=== PATIENT | male | born 1975 | race Caucasian/White ===

== ENCOUNTER 2021-01-28 15:18 | Emergency (ER) | payer OTHER ==
[2021-01-28] MEDS ORDERED: Bupivacaine 0.5% 10 ML SDV INJECT ONE (15:56)
[2021-01-28] MEDS ORDERED: Bacitracin Oint 1 GM U/D Packet TOP ONE (15:56)
[2021-01-28] MEDS ORDERED: Diphtheria,Pertussis(Acell),Tetanus Vaccine 0.5 ML Syringe IM ONE (15:56)
[2021-01-28] MEDS ORDERED: Povidone-Iodine 10% Soln 118.25 ML Bottle ONE (16:03)
--- NOTE | 2021-01-28 16:10 | EDM.PDOC ---
ED HPI GENERAL MEDICAL PROBLEM - General Chief Complaint: Laceration Stated Complaint: SMASHED RIGHT HAND Time Seen by Provider: 01/28/21 15:51 Source of Information: Reports: Patient History Limitations: Reports: No Limitations - History of Present Illness INITIAL COMMENTS - FREE TEXT/NARRATIVE: Raul is a 45 year old male whom presents to ER for evaluation of right hand injury. [facility] xray completed, shot of Dilaudid for pain and told 2 hour wait to be repaired. Raul left the [facility] facility due to wait. Raul was at work this afternoon when he got his finger caught between two garage doors around 12:15 this after noon resulting in right ring finger injury. Raul does not recall last tetanus shot and pain is still tolerable due to previous dilaudid injection. Right Finger-Ring Pain Score (Numeric/FACES): 4 - Related Data Allergies Allergy/AdvReac Type Severity Reaction Status Date / Time No Known Allergies Allergy Verified 01/28/21 15:41 Home Meds: Home Meds NK [No Known Home Meds] 01/28/21 [History] Past Medical History HEENT History: Reports: Hard of Hearing - Infectious Disease History Infectious Disease History: Reports: Chicken Pox - Past Surgical History Head Surgeries/Procedures: Reports: None HEENT Surgical History: Reports: Tonsillectomy Dermatological Surgical History: Reports: None Social & Family History - Tobacco Use Tobacco Use Status *Q: Current Every Day Tobacco User Years of Tobacco use: 15 Packs/Tins Daily: 0.5 - Caffeine Use Caffeine Use: Reports: Coffee, Soda - Recreational Drug Use Recreational Drug Use: No ED ROS GENERAL - Review of Systems Review Of Systems: Comprehensive ROS is negative, except as noted in HPI. ED EXAM, SKIN/RASH Exam: See Below Exam Limited By: No Limitations General Appearance: Alert, WD/WN, Mild Distress (hand injury/laceration) ED SKIN PROCEDURES - Laceration/Wound Repair Right Digit - 4th (Ring) Appearance: Superficial, Subcutaneous, Irregular (flap ), Mildly Contaminated Distal NVT: Neuro & Vascular Intact, Other (distal flexor suface and fat pad ) Local Anesthesia - Bupivicaine (Marcaine): 0.5% Plain Local Anesthetic Volume: 4cc Skin Prep: Chlorhexidine (Hibiciens), Saline, Other (Soaked with sterile saline 750cc and betadine 2 cc) Exploration/Debridement/Repair: Wound Explored, In a Bloodless Field, Explored to Base, Wound Margins Revised, Other (debulked fat tissue to allow for closure and improved vascular bed for healing) Closed with: Sutures Lac/Wound length In cm: 6.5 Suture Size: 5-0 # of Sutures: 13 Suture Type: Nylon Sterile Dressing Applied: Provider Tetanus Status Addressed: Yes Complications: Yes Complication Description: Discussed risk of non healing due to size of flap with cool color due to bridge of intact soft tissue distal tip. Course - Vital Signs Last Recorded V/S: Last Vital Signs Temp 36.7 C 01/28/21 15:41 Pulse 72 01/28/21 15:41 Resp 16 01/28/21 15:41 BP 138/85 01/28/21 15:41 Pulse Ox 97 01/28/21 15:41 Departure - Departure Time of Disposition: 17:05 Disposition: Home, Self-Care 01 Clinical Impression: Finger laceration with complication, Tetanus toxoid vaccination administered at current visit - Discharge Information Instructions: Laceration Care, Adult Referrals: Aurora Bay MD [Primary Care Provider] - Additional Instructions: 1. KEEP LACERATION DRY AND CLEAN X [address] for the next 12-24 hours. 2. AFTER 48 hours CLEANSE WOUND DAILY AND APPLY TOPICAL ANTIBIOTIC OINTMENT. 3. FOLLOW WOUND CARE INFORMATION GIVEN. 4. FOLLOW UP IN CLINIC IN 3-5 days for wound check and 7-10 DAYS FOR POSSIBLE SUTURE REMOVAL. 5. Tylenol or Ibuprofen for pain and swelling. 6. Return for repeat evaluation if increase, changes, new or worsen symptoms. Discharge Instructions Laceration (Cut) You were seen today for a laceration (cut). Your provider examined your laceration for any problems such a buried foreign body (like glass, a splinter, or gravel), or injury to blood vessels, tendons, and nerves. Your provider may have also rinsed and/or scrubbed your laceration to help prevent an infection. It may not be possible to find all problems with your laceration on the first visit; occasionally foreign bodies or a tendon injury can go undetected. Your laceration may have been closed in one of several ways: No closure: many wounds will heal just fine without closure. Stitches: regular stitches that require removal. Pepe: skin pepe are often used in the scalp/head. Wound adhesive (glue): skin glue can be used for certain lacerations and doesnt require removal. Wound strips (aka Butterfly bandages or steri-strips): these are bandages that help to close a wound. Absorbable stitches: dissolving stitches that go away on their own and usually dont require removal. A small percentage of wounds will develop an infection regardless of how well the wound is cared for. Antibiotics are generally not indicated to prevent an infection so are only given for a small number of high-risk wounds. Some lacerations are too high risk to close, and are left open to heal because closure can increase the likelihood that an infection will develop. Remember that all lacerations, no matter how expertly repaired, will cause scarring. We consider many factors, techniques, and materials, in our efforts to provide the best possible cosmetic outcome. Generally, every Emergency Department visit should have a follow-up clinic visit with either a primary or a specialty clinic/provider. Please follow-up as instructed by your emergency provider today. Return to the Emergency Department right away if: You have more redness, swelling, pain, drainage (pus), a bad smell, or red streaking from your laceration as these symptoms could indicate an infection. You have a fever of 100.4F or more. You have bleeding that you cannot stop at home. If your cut starts to bleed, hold pressure on the bleeding area with a clean cloth or put pressure over the bandage. If the bleeding does not stop after using constant pressure for 30 minutes, you should return to the Emergency Department for further treatment. An area past the laceration is cool, pale, or blue compared with the other side, or has a slower return of color when squeezed. Your dressing seems too tight or starts to get uncomfortable or painful. For children, signs of a problem might be irritability or restlessness. You have loss of normal function or use of an area, such as being unable to straighten or bend a finger normally. You have a numb area past the laceration. Return to the Emergency Department or see your regular provider if: The laceration starts to come open. You have something coming out of the cut or a feeling that there is something in the laceration. Your wound will not heal, or keeps breaking open. There can always be glass, wood, dirt or other things in any wound. They will not always show up, even on x-rays. If a wound does not heal, this may be why, and it is important to follow-up with your regular provider. Home Care: Take your dressing off in 12-24 hours, or as instructed by your provider, to check your laceration. Remove the dressing sooner if it seems too tight or painful, or if it is getting numb, tingly, or pale past the dressing. Gently wash your laceration 1-2 times daily with clean water and mild soap. It is okay to shower or run clean water over the laceration, but do not let the laceration soak in water (no swimming). If your laceration was closed with wound adhesive or strips: pat it dry and leave it open to the air. For all other repairs: after you wash your laceration, or at least 2 times a day, apply antibiotic ointment (such as Neosporin or Bacitracin) to the laceration, then cover it with a Band-Aid or gauze. Keep the laceration clean. Wear gloves or other protective clothing if you are around dirt. Follow-up for removal: If your wound was closed with pepe or regular stitches, they need to be removed according to the instructions and timeline specified by your provider today. If your wound was closed with absorbable (dissolving) sutures, they should fall out, dissolve, or not be visible in about one week. If they are still visible, then they should be removed according to the instructions and timeline specified by your provider today. Scars: To help minimize scarring: Wear sunscreen over the healed laceration when out in the sun. Massage the area regularly once healed. You may apply Vitamin E to the healed wound. Wait. Scars improve in appearance over months and years. If you were given a prescription for medicine here today, be sure toread all of the information (including the package insert) that comes with your prescription. This will include important information about the medicine, its side effects, and any warnings that you need to know about. The pharmacist who fills the prescription can provide more information and answer questions you may have about the medicine. If you have questions or concerns that the pharmacist cannot address, please call or return to the Emergency Department. Remember that you can always come back to the Emergency Department if you are not able to see your regular provider in the amount of time listed above, if you get any new symptoms, or if there is anything that worries you. TETANUS (LOCKJAW) IMMUNIZATION GENERAL INFORMATION: Tetanus is an acute infectious disease which produces painful tonic spasms of some voluntary muscles. Often the first noticeable sign is stiffness of the jaw (lockjaw). Tetanus shots are indicated for active immunization/protection of children over six years of age and adults. The basic immunization course consists of two doses/injections given at intervals of 4-6 weeks, and followed by a third dose/injection 6-12 months later. The third dose must be given to consider immunization/terminal manager protection completed. routine booster dose/injection should be given in ten year intervals throughout life to maintain immunity. GOAL:To prevent tetanus from occurring. TREATMENT/SPECIAL INSTRUCTIONS: 1. For clean minor wounds, a tetanus booster shot is necessary if ten years have elapsed since your last booster. For all other wounds, a booster shot is needed if it has been five or more years since your last booster. 2. A small area of redness and firmness at the site of the Injection (shot) is common, and may last for a few days. 3. If your arm feels stiff and sore, exercise it. You may also apply cold to the injection area for relief of minor discomfort. 4. It is important to keep a record of the date on which you received your Tetanus booster. This is a card for you to record the date of your booster. Cut it out and keep it in your billfold for reference. Sepsis Event Note (ED) - Evaluation Sepsis Screening Result: No Definite Risk - Focused Exam Vital Signs: Vital Signs Temp Pulse Resp BP Pulse Ox 01/28/21 15:41 36.7 C 72 16 138/85 97 01/28/21 15:38 36.7 C 72 16 138/85 97
[2021-01-28] MEDS ORDERED: Povidone-Iodine 10% Soln 118.25 ML Bottle TOP ONE (16:18)
== END 2021-01-28 17:23 | disposition home or self-care (01) ==
LOC: JP.ED 15:18
DX: S61.214A Laceration without foreign body of right ring finger without damage to nail, initial encounter (principal); Z72.0 Tobacco use; Z23 Encounter for immunization; W23.0XXA Caught, crushed, jammed, or pinched between moving objects, initial encounter; Y92.69 Other specified industrial and construction area as the place of occurrence of the external cause
CPT/HCPCS: 12002; 90471; 90715; 99283; J3490